=== PATIENT | female | born 1995 | race Caucasian/White ===

== ENCOUNTER → 2016-07-20 11:19 | Emergency (ER) | payer SELFPAY ==
[~2016-07-20 11:19] MED LIST: PPD test dose* 5 TU/0.1 ML TEST (*USE PPD ORDER SET*) ONE
== END | disposition home or self-care (01) ==
LOC: OHCORT 11:19
DX: Z11.1 Encounter for screening for respiratory tuberculosis (principal)

== ENCOUNTER 2017-04-09 09:02 | Emergency (ER) | payer BC ==
[2017-04-09 09:53] VITALS: BP 143/85
--- NOTE | 2017-04-09 10:34 | UC ---
UC General HPI - HPI Summary HPI Summary: 22 yo female c/o last couple days cough (minimally prod clear), no sob perse, no rash. No GI sx. + fever since last night. Hx childhood asthma, not recently. - History of Current Complaint Chief Complaint: UCRespiratory Stated Complaint: CONGESTION/FEVER Time Seen by Provider: 04/09/17 10:16 Hx Obtained From: Patient Hx Last Menstrual Period: 03/15/17 Pain Intensity: 0 - Allergy/Home Medications Allergies/Adverse Reactions: Allergies Allergy/AdvReac Type Severity Reaction Status Date / Time MS Metoclopramide Allergy Hives Verified 04/09/17 09:44 [From Reglan] seasonal Allergy Congestion Uncoded 04/09/17 09:44 Home Medications: Home Medications Acetaminophen TAB* [Tylenol TAB*] 650 mg PO ONCE PRN 04/09/17 [History Confirmed 04/09/17] PMH/Surg Hx/FS Hx/Imm Hx Previously Healthy: Yes - Surgical History Surgical History: None - Family History Known Family History: Positive: Hypertension - Social History Alcohol Use: Rare Substance Use Type: None Smoking Status (MU): Never Smoked Tobacco - Immunization History Most Recent Tetanus Shot: about 2007 Vaccination Up to Date: Yes Review of Systems Constitutional: Fever Skin: Negative Eyes: Negative ENT: Sore Throat, Nasal Discharge, Sinus Congestion Respiratory: Cough Cardiovascular: Negative Gastrointestinal: Negative Genitourinary: Negative Motor: Negative Neurovascular: Negative Musculoskeletal: Myalgia Neurological: Negative Psychological: Negative Is Patient Immunocompromised?: No All Other Systems Reviewed And Are Negative: Yes Physical Exam Triage Information Reviewed: Yes Appearance: Well-Nourished Vital Signs: Initial Vital Signs Temp 99.1 F 04/09/17 09:49 Pulse 105 04/09/17 09:49 Resp 20 04/09/17 09:49 BP 143/85 04/09/17 09:49 Pulse Ox 99 04/09/17 09:49 Vital Signs Reviewed: Yes Eye Exam: Normal ENT: Positive: Pharyngeal erythema - uvula midline, TM dull Neck exam: Normal Neck: Positive: Supple, Nontender Respiratory: Positive: Wheezing - mild exp wheeze bilat BS equal. No rtx. Cardiovascular Exam: Normal - HR 100's Cardiovascular: Positive: No Murmur, Pulses Normal, Brisk Capillary Refill, Tachycardia Abdominal Exam: Normal Abdomen Description: Positive: Nontender Musculoskeletal Exam: Normal - gait steady Neurological Exam: Normal - grossly nonfocal Psychological Exam: Normal - conversing easily and appropriately Skin Exam: Normal - nondiaphoretic Course/Dx - Course Course Of Treatment: Reviewed coa / tx plan. Questions answered to the best of my ability. Influenza a/b neg - Differential Dx - Multi-Symptom Provider Diagnoses: Bronchitis with wheezing Discharge - Discharge Plan Condition: Stable Disposition: HOME Prescriptions: Albuterol HFA INHALER* [Ventolin HFA Inhaler*] 1 - 2 puff INH Q6H PRN #1 mdi PRN Reason: Wheezing Patient Education Materials: Acute Bronchitis (ED), Bronchospasm (ED) Forms: *Work Release Referrals: [facility] – [place] [facility] [Outside] No Primary Care Phys,NOPCP [Primary Care Provider] - Additional Instructions: Seek medical attention for worse or new problems.
== END 2017-04-09 11:25 | disposition home or self-care (01) ==
LOC: UCCORT 09:02
DX: J40 Bronchitis, not specified as acute or chronic (principal); R06.2 Wheezing
CPT/HCPCS: 87502; 99212; G0463

== ENCOUNTER 2017-08-04 20:09 | Emergency (ER) | payer BC ==
[2017-08-04 20:33] VITALS: BP 149/108
--- NOTE | 2017-08-04 21:06 | UC ---
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 in btw 4th and 5th MCP her little finger is what hurts the most/especially with movement Td up to date was breaking up a dog fight both dogs are hers and vaccinated - History of Current Complaint Chief Complaint: UCLaceration Stated Complaint: LAC RIGHT HAND/DOG BITE Time Seen by Provider: 08/04/17 20:47 Hx Obtained From: Patient Hx Last Menstrual Period: 07/31/17 ?: Yes Severity Currently: Moderate Severity Initially: Moderate Pain Intensity: 5 Pain Scale Used: 0-10 Numeric Onset/Duration: Sudden Onset Type of Bite: Animal Has Animal Been Immunized?: Yes Character: Abrasion/Laceration Aggravating Factor(s): Nothing Alleviating Factor(s): Nothing Animal Available for Observation: Yes - Allergies/Home Medications Allergies/Adverse Reactions: Allergies Allergy/AdvReac Type Severity Reaction Status Date / Time metoclopramide Allergy Hives Verified 08/04/17 20:31 seasonal Allergy Congestion Uncoded 08/04/17 20:31 PMH/Surg Hx/FS Hx/Imm Hx Previously Healthy: Yes - Surgical History Surgical History: None - Family History Known Family History: Positive: Hypertension, Diabetes - Social History Alcohol Use: Rare Substance Use Type: None Smoking Status (MU): Never Smoked Tobacco - Immunization History Most Recent Tetanus Shot: 2015 Vaccination Up to Date: Yes Review of Systems Constitutional: Negative Skin: Other - lac Eyes: Negative ENT: Negative Respiratory: Negative Cardiovascular: Negative Gastrointestinal: Negative Genitourinary: Negative Motor: Negative Neurovascular: Negative Musculoskeletal: Negative Neurological: Negative Psychological: Negative Is Patient Immunocompromised?: No All Other Systems Reviewed And Are Negative: Yes Physical Exam Triage Information Reviewed: Yes Appearance: Well-Appearing, No Pain Distress, Well-Nourished Vital Signs: Initial Vital Signs Temp 98.1 F 08/04/17 20:26 Pulse 95 08/04/17 20:26 Resp 17 08/04/17 20:26 BP 149/108 08/04/17 20:26 Pulse Ox 100 08/04/17 20:26 ENT: Positive: Hearing grossly normal. Negative: Nasal congestion, Nasal drainage, Trismus, Muffled voice, Hoarse voice Neck: Positive: Supple, Nontender, No Lymphadenopathy Respiratory: Positive: Lungs clear, Normal breath sounds, No respiratory distress, No accessory muscle use Cardiovascular: Positive: RRR, No Murmur Musculoskeletal Exam: Normal Neurological: Positive: Alert Psychological Exam: Normal Skin Exam: Other - see image Diagnostics - Radiology No standard instances Xray Interpretation: No Acute Changes Radiology Interpretation Completed By: ED Physician Bite Injury Course/Dx - Differential Dx/Diagnosis Provider Diagnoses: dog bite right hand. right hand laceration - not sutured Discharge - Sign-Out/Discharge Documenting (check all that apply): Discharge/Admit/Transfer - Discharge Plan Condition: Stable Disposition: HOME Prescriptions: Amoxicillin/Clavulanate TAB* [Augmentin TAB 875*] 875 mg PO BID #12 tab Patient Education Materials: Animal Bite (ED) Forms: *Work Release Referrals: Lourdes Paul PA [Primary Care Provider] - 2 Days Additional Instructions: elevate elevate elevate gently clean twice daily with soap and water air dry or dry gently with a clean towel apply thin film of antibiotic oint bandaid recheck for concerns of infection your BP was high here and should be rechecked in a few weeks Images Hands: 1 - lac- 1 cm long, 2-3 mm wide, 1-2 mm deep
[2017-08-04] MEDS ORDERED: Amoxicillin/Clavulanate TAB* 875 MG PO ONE ×2 (21:21)
--- NOTE | 2017-08-04 21:38 | RAD ---
Indication: Dog bite. 2 views of the right hand demonstrates no fracture. Joint spaces all well-preserved. IMPRESSION: No fracture of the right hand is noted.
== END 2017-08-04 21:36 | disposition home or self-care (01) ==
LOC: UCCORT 20:09
DX: S61.411A Laceration without foreign body of right hand, initial encounter (principal); W54.0XXA Bitten by dog, initial encounter; Y93.9 Activity, unspecified; Y92.9 Unspecified place or not applicable; Z88.8 Allergy status to other drugs, medicaments and biological substances
CPT/HCPCS: 99213; A9270-GY; G0463

== ENCOUNTER 2018-05-03 14:24 | Emergency (ER) | payer BC ==
[2018-05-03 15:16] VITALS: BP 142/74
--- NOTE | 2018-05-03 15:41 | UC ---
Respiratory Complaint HPI - HPI Summary HPI Summary: 23 yo female with <24 hour hx of f/c, runny nose, cough and myalgias hx of asthma no wheezing - History of Current Complaint Chief Complaint: UCGeneralIllness Stated Complaint: COUGH, CHILLS Time Seen by Provider: 05/03/18 15:28 Hx Obtained From: Patient Hx Last Menstrual Period: 04/28/18 Onset/Duration: Sudden Onset, Lasting Hours Timing: Constant Severity Initially: Mild Severity Currently: Moderate Pain Intensity: 0 Pain Scale Used: 0-10 Numeric Character: Cough: Nonproductive Aggravating Factors: Nothing Associated Signs And Symptoms: Positive: URI - Allergies/Home Medications Allergies/Adverse Reactions: Allergies Allergy/AdvReac Type Severity Reaction Status Date / Time metoclopramide Allergy Hives Verified 05/03/18 15:16 seasonal Allergy Congestion Uncoded 05/03/18 15:16 Home Medications: Home Medications Ibuprofen TAB* [Motrin TAB* 600 MG] 600 mg PO Q8H PRN 05/03/18 [History Confirmed 05/03/18] PMH/Surg Hx/FS Hx/Imm Hx Previously Healthy: Yes Respiratory History: Asthma - Surgical History Surgical History: None - Family History Known Family History: Positive: Hypertension, Diabetes - Social History Alcohol Use: Rare Substance Use Type: None Smoking Status (MU): Never Smoked Tobacco - Immunization History Most Recent Tetanus Shot: 2014 Vaccination Up to Date: Yes Review of Systems All Other Systems Reviewed And Are Negative: Yes Constitutional: Positive: Fever, Chills, Fatigue Skin: Positive: Negative Eyes: Positive: Negative ENT: Positive: Nasal Discharge, Sinus Congestion, Sinus Pain/Tenderness Respiratory: Positive: Cough Cardiovascular: Positive: Negative Gastrointestinal: Positive: Negative Genitourinary: Positive: Negative Motor: Positive: Negative Neurovascular: Positive: Negative Musculoskeletal: Positive: Negative, Myalgia Neurological: Positive: Negative Psychological: Positive: Negative Physical Exam Vital Signs: Initial Vital Signs Temp 98.2 F 05/03/18 15:11 Pulse 83 05/03/18 15:11 Resp 16 05/03/18 15:11 BP 142/74 05/03/18 15:11 Pulse Ox 99 05/03/18 15:11 Respiratory Course/Dx - Course Course Of Treatment: influenza (-) - Differential Dx/Diagnosis Provider Diagnosis: Viral URI with cough, Elevated BP without diagnosis of hypertension Discharge - Sign-Out/Discharge Documenting (check all that apply): Patient Departure All imaging exams completed and their final reports reviewed: No Studies - Discharge Plan Condition: Stable Disposition: HOME Prescriptions: Albuterol HFA INHALER* [Ventolin HFA Inhaler*] 2 puff INH QID PRN #1 mdi PRN Reason: Wheezing Benzonatate CAP* [Tessalon CAP*] 100 - 200 mg PO TID PRN #28 cap PRN Reason: Cough Patient Education Materials: Upper Respiratory Infection (ED) Forms: *Work Release Referrals: Lourdes Paul PA [Primary Care Provider] - 6 Days (if not better) - Billing Disposition and Condition Condition: STABLE Disposition: Home
[2018-05-03 15:56] LABS: Influenza A Molecular NEGATIVE (Negative); Influenza B Molecular NEGATIVE (Negative)
== END 2018-05-03 16:05 | disposition home or self-care (01) ==
LOC: UCCORT 14:24
DX: J06.9 Acute upper respiratory infection, unspecified (principal); R05 Cough; R03.0 Elevated blood-pressure reading, without diagnosis of hypertension; J45.909 Unspecified asthma, uncomplicated; Z91.09 Other allergy status, other than to drugs and biological substances; Z88.8 Allergy status to other drugs, medicaments and biological substances
CPT/HCPCS: 99212; G0463

== ENCOUNTER 2019-04-21 18:00 | Inpatient (IN) | payer BC ==
[2019-04-21] MEDS ORDERED: Dinoprostone* 10 MG VAG.SUPP VAGINAL ONE (18:17)
[2019-04-21] MEDS ORDERED: Buffered Lidocaine 1% SYRIN* 1 ML/SYRINGE INTRADERM ONE (18:17)
[2019-04-21] MEDS ORDERED: Lactated Ringers 1000 ML Bag* 1,000 ML IV ONE (18:17)
[2019-04-21] MEDS ORDERED: Zolpidem TAB* 10 MG PO PRN (18:21)
--- NOTE | 2019-04-21 22:00 | HP ---
General Information - Reason for Visit Induction @39wks for A2GDM - General Information Maternal Age: 24 Grav: 1 Para: 0 SAB: 0 IEA: 0 Estimated Due Date: 04/28/19 Determined By: LMP Maternal Blood Type and Rh: O Positive - Results this Serology/RPR Result: Non-Reactive Rubella Result: Immune HBsAg Result: Negative HIV Result: Negative GBS Culture Result: Negative Past Medical History Pertinent Past Medical History: See Records Pertinent Past Surgical History: See Records Pertinent Family History: Non-Contributory - Antepartal Records Antepartal Records: Reviewed, Complicated by: - A2GDM, morbid obesity Review of Systems Constitutional: Comfortable CV Complaint: No Respiratory: Shortness of Breath: No Gastrointestinal: No Nausea/Vomiting, Normal Bowel Movement Genitourinary: No Dysuria, No Bleeding, No Leaking Fluid Musculoskeletal: No Complaint Neurological: No Headache, No Visual Changes Movement: Normal Exam Allergies/Adverse Reactions: Allergies metoclopramide Allergy (Verified 05/03/18 15:16) Hives seasonal Allergy (Uncoded 05/03/18 15:16) Congestion - Measurements Height: 5 ft 8 in Weight: 329 lb Weight in lbs: 329.427019 Body Mass Index (BMI): 50.0 Pre- Weight: 305 lb Weight Gained This : 24 lbs and 0 ozs - Exam Breast: Breast Exam Deferred CVA: No CVA Tenderness Extremities: No Edema Heart: Normal Rhythm/Heart Sounds HEENT: No Significant Findings - Abdominal Exam Abdomen Exam: Non-Tender - Ultrasound/Biophysical Profile Ultrasound Status: Not Done Targeted Exam Findings Cervical Exam: Closed Presenting Part: Vertex Membrane Status: Intact EFM Findings - External Monitor Findings Baseline Heart Rate: 135 External Monitor Findings: Accelerations Present, No Pattern of Variable or Late Decelerations, Variability Moderate, Baseline Stable Contractions: None Assessment/Plan - Assessment @39wks with A2GDM here for IOL. FS well controlled on 12U NPH QHS - Obstetrical Risk Factors Obstetrical Risk Factors: Gestational Diabetes - Plan Plan: Induction, Cervical Ripening
[2019-04-21] MEDS: Insulin NPH(*) 1 UNITS UNIT SUBCUT SCH (22:31)
[2019-04-22 07:55] LABS: Urine Benzodiazepine Screen None Detected (None Detect); Urine Opiates Screen None Detected (None Detect)
[2019-04-22] MEDS ORDERED: Dinoprostone* 10 MG VAG.SUPP VAGINAL ONE (08:44)
--- NOTE | 2019-04-22 11:31 | PN ---
Progress Note - Progress Note Date of Service: 04/22/19 Note: Sign out received from prior Call physician. Pt is G1 here for IOL in 39th week 2/2 GDMA2. Received cervidil last night, re-examined this AM with no cervical change. Cervix closed/thick/high, cervidil repeated this AM, if no or limited success with cervidil, will attempt transcervical balloon. FHT is reactive and reassuring with a baseline of 140bpm. Continue IOL Chan Cook, OBVENUN
[2019-04-22 15:25] LABS: ABS Lymphocytes 1.5 10^3/ul (1.0-4.8); ABS Monocytes 0.9 10^3/ul (0-0.8); ABS Neutrophils 13.5 10^3/ul (1.5-7.7); Eosinophil % 0.2 %; Hematocrit 34 % (35-47); Hemoglobin 11.1 g/dL (12.0-16.0); Lymphocyte % 9.5 %; Mean Corpuscular HGB Conc 32 g/dL (31-36); Mean Corpuscular Hemoglobin 21 pg (27-31); Mean Corpuscular Volume 65 fL (80-97); Mean Platelet Volume 8.4 fL (7.4-10.4); Nucleated Red Blood Cells % 0.1; Platelet Count 287 10^3/uL (150-450); Red Blood Count 5.29 10^6 /uL (3.70-4.87); Red Cell Distribution Width 16 % (10-15)
[2019-04-22] MEDS ORDERED: Morphine 10 MG/ML VIAL (1 ml) IV ONE (17:42)
--- NOTE | 2019-04-22 17:46 | PN ---
Progress Note - Progress Note Date of Service: 04/22/19 Note: Patient on hour 8 of Cervidil. Reports ongoing cramping and mild back pain. Requests pain relief, but not ready for epidural. Will give Morphine 5mg IV. FHT is baseline 145bpm, moderate, + accels, no decels [place] with ctxn's q 1-3 minutes. BP's normotensive. FSBG values appropriate. Re-examine in ~ 4 hours at 12 hour afshin of cervidil and remove cervidil at that time. Chan Cook, DO MACIAS
--- NOTE | 2019-04-22 22:23 | PN ---
Progress Note - Progress Note Date of Service: 04/22/19 Note: 24 y/o G1 at 39w1d here for IOL 2/2 GDMA2. Has received cervidil x 2, cervidil # 2 just removed; still not in active labor, but has been galina irregularly , spaced out after administration of Morphine 5mg x 1. Cervix was closed at beginning of IOL, now 1cm/thick/-3, soft, mid position. Discussed options for proceeding forward, pt would like to proceed with Cooks transcervical balloon. Exam is appropriate for Cooks. FHT is 140/moderate/+accels/no decels [place]: irregular contractions Will place Cooks balloon. RH+/Rubella Immune GBS negative Will continue with NPH Insulin as patient has been eating regular diet. In anticipation of labor will reduce dose this evening though. Continue to monitor FSBG values fasting and post prandial while eating a regular diet or until in active labor, then begin checking q 2 hours. Chan Cook, OBVENUN
--- NOTE | 2019-04-22 22:47 | PN ---
Progress Note - Progress Note Date of Service: 04/22/19 Note: Transcervical Cooks Balloon placed at ~ 1040pm. 75cc placed in the uterine balloon, 40cc placed in the vaginal balloon. Pt tolerated procedure well. Cervix swabbed with betadine prior to placement. Will give IV Morphine/Phenergan for pain relief/therapeutic rest. Will start low dose pitocin. FHT reactive and reassuring with baseline of 135bpm, no pattern of late or variable decels. Chan Cook, DO MACIAS
[2019-04-22] MEDS ORDERED: Morphine 10 MG/ML VIAL (1 ml) IV PRN (22:48)
[2019-04-22] MEDS ORDERED: Promethazine INJ(RESTRICTED)* 25 MG/ML 1 ML VIAL IV PRN (22:50)
[2019-04-22] MEDS ORDERED: Oxytocin in LR* 20 UNITS/1,000 ML BAG IVPB SCH (23:00)
[2019-04-22] MEDS: Insulin NPH(*) 1 UNITS UNIT SUBCUT SCH (23:12)
[2019-04-23] MEDS: Insulin NPH(*) 1 UNITS UNIT SUBCUT SCH (07:12)
--- NOTE | 2019-04-23 08:07 | PN ---
Progress Note - Progress Note Date of Service: 04/23/19 Note: Cooks balloon spontaneously expelled at 630am. Pt galina overnight, but spacing out. Fasting AM Glucose 89. FHT Reactive with baseline 145bpm, moderate variability, no decels. Pt would like to shower and eat prior to starting Pitocin. DO GILBERTO Dickerson
[2019-04-23] MEDS: Lactated Ringers 1000 ML Bag* 1,000 ML IV SCH ×2 (08:52→13:14)
--- NOTE | 2019-04-23 10:22 | PN ---
Progress Note - Progress Note Date of Service: 04/23/19 Note: Pt re-examined, cervix is now 5cm/60%/-2. Varun regularly on Pitocin at 6. AROM'd with clear fluid at 1015am. Head well applied. FHT is 150bpm/moderate variability/+accels/no decels Continue to titrate pitocin. Anticipate vaginal delivery. Will transition to q 2 hours FSBG values now, if elevated treat as indicated Chan Cook, DO MACIAS
[2019-04-23] MEDS ORDERED: OBEPIDURAL* 250 ML EPIDURAL ONE (11:17)
[2019-04-23] MEDS ORDERED: Sodium Citrate/Citric Acid* 15 ML UDC PO PRN (12:08)
[2019-04-23] MEDS ORDERED: Phenylephrine 40 MCG/ML SYRINGE IV PUSH PRN ×2 (12:08)
[2019-04-23] MEDS ORDERED: Lactated Ringers 1000 ML Bag* 1,000 ML IV ONE (12:08)
[2019-04-23] MEDS ORDERED: Lactated Ringers 1000 ML Bag* 1,000 ML IV SCH (13:00)
[2019-04-23] MEDS ORDERED: OBEPIDURAL* 250 ML EPIDURAL SCH (13:00)
--- NOTE | 2019-04-23 16:15 | PN ---
Progress Note - Progress Note Date of Service: 04/23/19 Note: Varun regularly. Cervix was re-examined by nursing and possibly thinner, but still 5cm. FHT is reactive with moderate variability, baseline 145bpm, occasional intermittent variables, no pattern of late or variable decels Pit is at 20, continue to max x 2 hours, then if no progress will turn off and allow Pitocin receptors to re-set, as long as tracing permits AVSS. FSBG values WNL. Chan Cook, DO MACIAS
--- NOTE | 2019-04-23 18:47 | PN ---
Progress Note - Progress Note Date of Service: 04/23/19 Note: Pt cervix re-examined at ~ 430pm. Cervix still 5cm, but significantly thinned out to 80% and head is better applied, but still at -2 station. On exam there was and additional large gush of fluid. Pitocin was stopped shortly after exam at ~1750pm to allow Pitocin receptors time to reset, as pt had been maxed out at 22. FHT remains re-assuring with moderate variability,+ accels, occasional variable decels, no continuous patterned late or variable decels. Will re-start Pitocin shortly and continue monitor. At this point pt has been ruptured x 8.5 hours and on Pitocin, but still in latent phase of labor and slow to enter into active phase. status remains reassuring and there is no indication for at this time. Pt wishes to proceed with IOL and attempt at vaginal delivery. She remains afebrile, and there are no s/sx of infection. DO GILBERTO Dickerson
--- NOTE | 2019-04-23 21:33 | PN ---
Progress Note - Progress Note Date of Service: 04/23/19 Note: FHT exhibits recurrent variable and occasional late decelerations with decreasing variability while being augmented with Pitocin. Pitocin had to be turned off secondary to the persistent category II tracing that was not responding to resucsitative measures. Cervix remains unchanged at 5cm and the head remains relatively high in the pelvis. There is small caput. Recommend that we proceed with delivery at this time secondary to persistent category II FHT remote from delivery, unable to further augment labor. Discussed the risks versus benefits of continuing to pursue a vaginal delivery versus proceeding with a cesaren section. Risks of were carefully reviewed with the patient and verbal and written consent were obtained. Anesthesia and Neonatology notified. FHT is stable at this time with Pitocin turned off. Will proceed to OR in a timely and safe fashion. DO GILBERTO Dickerson
[2019-04-23] MEDS ORDERED: ceFAZolin 1 GM ADVAN(*) 1 GM in NS 0.9% 50 ML* 50 ML IVPB ONE (21:54)
[2019-04-23] MEDS ORDERED: ceFAZolin VIAL(*) 2 GM in NS 0.9% 100 ML* 100 ML IVPB ONE (21:54)
[2019-04-23] MEDS ORDERED: OXYTOCIN* 10 UNITS/ML 1 ML VIAL ONE (22:13)
[2019-04-23] MEDS ORDERED: Morphine PF AMP (0.5MG/ML)* 5 MG/10 ML AMP ONE (22:13)
[2019-04-23] MEDS ORDERED: Phenylephrine 40 MCG/ML SYRINGE ONE (22:57)
[2019-04-23] MEDS ORDERED: Bupivacaine 0.5% SDV PF* 30ML VIAL ONE (22:57)
[2019-04-23] MEDS ORDERED: Ondansetron INJ* 2 MG/ML VIAL ONE (22:58)
[2019-04-23] MEDS ORDERED: Ketorolac INJ* 30 MG/ML 1 ML VIAL ONE (23:26)
[2019-04-24] MEDS ORDERED: Misoprostol TAB* 200 MCG ONE (00:45)
[2019-04-24] MEDS ORDERED: Glycerin ADULT SUPP PR PRN (00:47)
[2019-04-24] MEDS ORDERED: oxyCODONE TAB* 5 MG TAB PO PRN (00:47)
[2019-04-24] MEDS ORDERED: Dibucaine 1% 28.35 GM TUBE PR PRN (00:47)
[2019-04-24] MEDS ORDERED: Zolpidem TAB* 5 MG PO PRN (00:47)
[2019-04-24] MEDS ORDERED: Witch Hazel PAD* JAR TOPICAL PRN (00:47)
[2019-04-24] MEDS ORDERED: Misoprostol TAB* 200 MCG PR ONE (00:48)
[2019-04-24] MEDS ORDERED: Naloxone* 0.4 MG/ML 1 ML VIAL IV PRN ×2 (00:59→01:00)
[2019-04-24] MEDS ORDERED: fentaNYL* 50 MCG/ML 2 ML VIAL (100 MCG VIAL) IV PRN (00:59)
[2019-04-24] MEDS ORDERED: Ondansetron INJ* 2 MG/ML VIAL IV PRN (01:00)
[2019-04-24] MEDS ORDERED: HYDROcodone/ACETAMIN 5-325 MG* 1 TAB PO PRN (01:00)
[2019-04-24] MEDS ORDERED: Ketorolac INJ* 30 MG/ML 1 ML VIAL IV SCH (01:00)
[2019-04-24] MEDS ORDERED: DiMENhydriNATE IV* 50 MG/ML VIAL IV PUSH PRN (01:00)
[2019-04-24] MEDS ORDERED: diPHENhydraMINE IV* 50 MG/ML 1 ml VIAL (BENADRYL) IV PRN (01:00)
[2019-04-24] MEDS ORDERED: Lactated Ringers 1000 ML Bag* 1,000 ML IV SCH (01:00)
[2019-04-24] MEDS: Insulin NPH(*) 1 UNITS UNIT SUBCUT SCH (01:08)
[2019-04-24] MEDS: Ketorolac INJ* 30 MG/ML 1 ML VIAL IV SCH ×3 (06:06→18:05)
--- NOTE | 2019-04-24 06:21 | OP ---
DATE OF OPERATION: 04/23/19 - ROOM #101 DATE OF : 89 SURGEON: Corbin Cook, LENS CLEANER: Hanna Mirza MD ANESTHESIA: Spinal. PRE-OP DIAGNOSIS: SIUP at term, GDMA2, Persistent category II heart tracing, remote from delivery, unable to augment further. POST-OP DIAGNOSIS: same, delivered. OPERATIVE PROCEDURE: Primary low transverse section via Pfannenstiel incision. ESTIMATED BLOOD LOSS: 800 mL. IV FLUIDS: 2 L. URINE OUTPUT: 200 mL. SPECIMENS: Placenta to Pathology and mole excised from center lower abdomen. COMPLICATIONS: None. INDICATIONS: Pt initially presented for induction of labor at 39 weeks secondary to GDMA2. Received Cervidil x 2, followed by transcervical Cooks balloon, followed by Pitocin and AROM. Pt's cervix remained unchanged at 5cm x 12 hours after rupture and Pitocin. Towards the end of this period of time the heart tracing exhibited recurrent variable and late decelerations. Conservative measures of oxygen supplementation and position changes did not relieve these findings. The Pitocin was discontinued and uterine rest was permitted. We were unable to further augment the patient and she remained remote from delivery. section was recommended to the patient for the well being. The patient understood that the risks of section include, but are not limited to visceral or vascular injury, infection, blood loss, and need for transfusion, prolonged hospitalization, and reoperation. The patient stated understanding and desired to proceed. All questions were answered. FINDINGS: Male in vertex position. Apgars 9 and 9. Weight 3470 g or 7 pounds 10 ounces. Normal uterus, fallopian tubes, and ovaries bilaterally. DESCRIPTION OF PROCEDURE: The patient was taken to the operating room where spinal anesthesia was administered and found to be adequate. 3 g of Ancef were given for infection prophylaxis. She was prepared and draped in the dorsal supine fashion with a leftward tilt. The traxi pannus retention system was used. A Pfannenstiel skin incision was made with the scalpel and carried down all they way to the fascia sharply. The fascia was incised and extended laterally. The inferior aspect of the fascia was grasped with the Marielle clamps. The underlying rectus muscle and pyramidalis was dissected off sharply with Costa scissors. In a similar fashion, superior aspect of the fascia was elevated with the Marielle and the rectus muscle dissected off. Hemostasis was achieved with the Bovie. The rectus muscle was in the midline down to the level of the pubic symphysis. Preperitoneal fatty tissue was bluntly dissected to expose the peritoneum. The peritoneum was found to be free of adherent bowel and entered bluntly. The peritoneal incision was extended superiorly and inferiorly to the bladder reflection with good visualization of the bladder. The bladder blade was inserted and vesicouterine peritoneum identified. Intraabdominal survey revealed scant clear peritoneal fluid and a thinned out lower uterine segment. The vesicouterine peritoneum was opened with scissors and a bladder flap was developed. The bladder blade was removed and the James retractor was placed in order to aid with visualization and keep the bladder and omentum out of the operative field. The lower uterine segment was incised with a scalpel. The amniotic sac was ruptured and clear fluid noted. Uterine incision was extended bluntly with a cephalocaudad motion. The fetus was in cephalic presentation. The head was elevated out of the pelvis with special attention paid to avoid using the uterine incision as fulcrum. Gentle fundal pressure was applied once the head was brought into the incision. The was delivered with no difficulty. The mouth and nose were suctioned with a bulb. The cord was clamped and cut. The infant was handed off to table setter. IV Pitocin was initiated to facilitate uterine contractions. The placenta was delivered intact with manual massage of the uterine fundus. The uterus was then exteriorized. The inside of the uterus was gently wiped with a lap sponge to assure complete removal of the placental membranes. The uterine incision was closed with 0 Vicryl suture in a running locked fashion. An imbricating suture was also performed with 0 Vicryl suture in a running fashion. The fallopian tubes and ovaries were found to be normal bilaterally. The uterus, tubes, and ovaries were then returned to the abdominal cavity. The blood clots and fluid were wiped out the abdomen and pelvis with moist laparotomy sponges. The uterine incision was reinspected and good hemostasis was noted. The peritoneum was closed with 3-0 Vicryl suture in a continuous running fashion. The fascial layer was closed with 0-Vicryl suture. The incision was irrigated. The subcutaneous fat was closed with 3-0 Vicryl interrupted sutures. The skin was closed with 4-0 Monocryl in a subcuticular fashion. The patient tolerated the procedure well. All the counts were correct x2. The patient was taken to the recovery room in stable condition. I was present for the entire procedure. DO JUAN F DickersonN [id number]/[facility] #: [id number] MTDD
[2019-04-24] MEDS: Simethicone TAB* 80 MG TAB.CHEW PO SCH ×4 (09:31→21:38)
[2019-04-24] MEDS: Docusate CAP* 100 MG PO SCH ×3 (09:33→21:38)
[2019-04-24] MEDS: Enoxaparin(*) 40 MG/0.4 ML SYR SUBCUT SCH (11:05)
[2019-04-25] MEDS: Ibuprofen TAB* 600 MG PO PRN ×4 (00:56→20:42)
[2019-04-25] MEDS: Acetaminophen TAB* 325 MG PO PRN ×4 (00:56→15:54)
[2019-04-25 06:55] LABS: ABS Basophils 0.1 10^3/ul (0-0.2); ABS Eosinophils 0.2 10^3/ul (0-0.6); ABS Lymphocytes 1.8 10^3/ul (1.0-4.8); ABS Monocytes 0.9 10^3/ul (0-0.8); ABS Neutrophils 9.9 10^3/ul (1.5-7.7); Eosinophil % 1.8 %; Hematocrit 27 % (35-47); Hemoglobin 8.6 g/dL (12.0-16.0); Lymphocyte % 13.7 %; Mean Corpuscular HGB Conc 32 g/dL (31-36); Mean Corpuscular Hemoglobin 21 pg (27-31); Mean Corpuscular Volume 65 fL (80-97); Mean Platelet Volume 8.1 fL (7.4-10.4); Nucleated Red Blood Cells % 0.1; Platelet Count 218 10^3/uL (150-450); Red Blood Count 4.15 10^6 /uL (3.70-4.87); Red Cell Distribution Width 16 % (10-15); White Blood Count 12.9 10^3/uL (3.5-10.8)
[2019-04-25] MEDS: Docusate CAP* 100 MG PO SCH ×3 (08:15→20:43)
[2019-04-25] MEDS: Ferrous Gluconate TAB* 324 MG TAB PO SCH ×2 (08:15→20:43)
[2019-04-25] MEDS: Simethicone TAB* 80 MG TAB.CHEW PO SCH ×4 (08:15→20:43)
[2019-04-25] MEDS: Enoxaparin(*) 40 MG/0.4 ML SYR SUBCUT SCH (11:31)
[2019-04-25] MEDS: oxyCODONE TAB* 5 MG TAB PO PRN ×2 (15:53→22:36)
[2019-04-26] MEDS: oxyCODONE TAB* 5 MG TAB PO PRN ×2 (06:12→10:47)
[2019-04-26] MEDS: Acetaminophen TAB* 325 MG PO PRN ×2 (06:12→10:46)
[2019-04-26] MEDS: Simethicone TAB* 80 MG TAB.CHEW PO SCH (07:40)
[2019-04-26] MEDS: Ferrous Gluconate TAB* 324 MG TAB PO SCH (07:41)
[2019-04-26] MEDS: Docusate CAP* 100 MG PO SCH (07:41)
[2019-04-26 07:56] VITALS: BP 134/68
== END 2019-04-26 12:06 | disposition home or self-care (01) | DRG 540 ==
LOC: MCHOBOUT 18:00 → MCHOB 21:41
PROVIDERS: ADMIT Obstetrics & Gynecology; ATTEND Obstetrics & Gynecology
PROC: 3E033VJ Introduction of Other Hormone into Peripheral Vein, Percutaneous Approach (ICD-10-PCS; 2019-04-23)
PROC: 3E0P7VZ Introduction of Hormone into Female Reproductive, Via Natural or Artificial Opening (ICD-10-PCS; 2019-04-23)
PROC: 10D00Z1 Extraction of Products of Conception, Low, Open Approach (ICD-10-PCS; principal; 2019-04-23 22:17)
DX: O24.424 Gestational diabetes mellitus in childbirth, insulin controlled (principal); O99.214 Obesity complicating childbirth; E66.01 Morbid (severe) obesity due to excess calories; O62.0 Primary inadequate contractions; O32.4XX0 Maternal care for high head at term, not applicable or unspecified; O76 Abnormality in fetal heart rate and rhythm complicating labor and delivery; Z3A.39 39 weeks gestation of pregnancy; Z37.0 Single live birth
CPT/HCPCS: 36415; 59200; 80307; 85025; 86850; 86900; 86901; 88305; A9270-GY; G0480; J0690; J1650; J1885; J2270; J2405; J2550; J2590; J3490

== ENCOUNTER 2023-01-19 06:01 | Inpatient (IN) ==
[~2023-01-19 06:01] MED LIST changes: +Buffered Lidocaine 1% SYRIN 1 ml INTRADERM ONE; +HYDROcodone/ACETAMIN 5/325 mg TAB PO PRN; +Lactated Ringers 1000 ml BAG 1,000 ML IV SCH; +Metoclopramide 5 MG/ML VIAL (10 mg) IV PRN; +Naloxone 0.4 mg VIAL 0.4 mg/ml 1 ml VIAL IV PRN; +Ondansetron 4 mg VIAL 2 MG/ML 2 ml VIAL IV PRN; -PPD test dose* 5 TU/0.1 ML TEST (*USE PPD ORDER SET*) ONE
[2023-01-19] MEDS ORDERED: Scopolamine 1 mg/72hr PATCH ONE (06:44)
[2023-01-19] MEDS ORDERED: ceFAZolin *3* GM in NS PREMIX 3 GM/100 ML BAG IV ONE (06:44)
[2023-01-19] MEDS ORDERED: Heparin 5000 UNITS/ML 1 mL VIAL ONE (06:44)
[2023-01-19] MEDS ORDERED: Ondansetron 4 mg VIAL 2 MG/ML 2 ml VIAL ONE (06:58)
[2023-01-19] MEDS ORDERED: Propofol 10 MG/ML 20 ML BTL ONE (06:58)
[2023-01-19] MEDS ORDERED: Rocuronium 50 mg VIAL 10 mg/ml 5 ml VIAL (50 mg) ONE (06:58)
[2023-01-19] MEDS ORDERED: Glycopyrrolate IV 0.2 MG/ML 1 ML VIAL ONE (06:58)
[2023-01-19] MEDS ORDERED: Dexamethasone IV 4 MG/ML VIAL 1 ml VIAL ONE ×2 (06:58→07:02)
[2023-01-19] MEDS ORDERED: Midazolam 2 mg/2 ml VIAL 1 mg/ml 2 ml VIAL (2 mg) ONE (07:01)
[2023-01-19] MEDS ORDERED: fentaNYL 250 mcg/5 ml 50 MCG/ML 5 ml VIAL (250 MCG) ONE (07:01)
[2023-01-19] MEDS ORDERED: Lidocaine 1% w EPI 1:200,000 SDV 30 ML VIAL ONE (07:06)
[2023-01-19] MEDS ORDERED: Bupivacaine 0.5% SDV PF 30ML VIAL ONE (07:06)
[2023-01-19] MEDS ORDERED: Methylene Blue 1% (ANTIDOTE) 10 MG/ML 1 ML SDV VIAL IVPB ONE ×2 (07:06→07:19)
[2023-01-19] MEDS ORDERED: HYDROmorphone 0.5 MG/0.5 ML SYRINGE ONE (08:17)
[2023-01-19] MEDS ORDERED: Labetalol IV 5 MG/ML 20 ml VIAL ONE (08:21)
[2023-01-19] MEDS ORDERED: Ondansetron 4 mg VIAL 2 MG/ML 2 ml VIAL IV PRN (09:41)
[2023-01-19] MEDS ORDERED: HYDROcodone/ACET. 7.5/325 LIQ 15 ML UDC PO PRN (09:41)
[2023-01-19] MEDS ORDERED: Famotidine IV 10 MG/ML 2 ml VIAL (20 mg) IV SLOW PU PRN (09:41)
[2023-01-19] MEDS ORDERED: HYDROmorphone 0.5 MG/0.5 ML SYRINGE IV SLOW PU PRN (09:41)
[2023-01-19] MEDS ORDERED: Dextrose 50% Syringe 50 ml 25 GM/50 ML SYRINGE IV PUSH PRN (09:46)
[2023-01-19 10:07] LABS: Rapid COVID-19 Molecular Undetected (Undetected)
[2023-01-19] MEDS ORDERED: fentaNYL 100 mcg/2 ml 50 MCG/ML VIAL ONE ×2 (10:16→10:24)
[2023-01-19] MEDS: fentaNYL 100 mcg/2 ml 50 MCG/ML VIAL IV PRN ×8 (10:18→11:34)
[2023-01-19] MEDS: Lactated Ringers 1000 ml BAG 1,000 ML IV SCH ×3 (13:06→19:41)
[2023-01-19] MEDS: Heparin 5000 UNITS/ML 1 mL VIAL SUBCUT SCH (21:43)
[2023-01-20] MEDS: Lactated Ringers 1000 ml BAG 1,000 ML IV SCH (02:18)
[2023-01-20] MEDS: Heparin 5000 UNITS/ML 1 mL VIAL SUBCUT SCH (06:12)
[2023-01-20 10:20] VITALS: BP 97/60
[2023-01-20] MEDS ORDERED: D5W 1/2 NS KCl 20 meq 1000 ml 1,000 ML IV SCH (13:30)
== END 2023-01-20 13:00 | disposition home or self-care (01) | DRG 403 ==
LOC: AA 06:01 → SSU 09:41
PROVIDERS: ADMIT Surgery; ATTEND Surgery

== ENCOUNTER 2023-02-22 18:10 | Inpatient (IN) ==
[2023-02-22] MEDS ORDERED: Ondansetron 4 mg VIAL 2 MG/ML 2 ml VIAL IV ONE (18:28)
[2023-02-22] MEDS ORDERED: Lactated Ringers 1000 ml BAG 1,000 ML IV ONE (18:44)
[2023-02-22 19:03] LABS: ABS Eosinophils 0.1 10^3/uL (0.0-0.5); ABS Lymphocytes 1.4 10^3/uL (1.0-4.8); ABS Monocytes 0.4 10^3/uL (0.0-0.9); ABS Neutrophils 6.2 10^3/uL (1.5-7.6); ABS Nucleated RBC 0.01 10^3/ul; Eosinophil % 0.8 %; Hematocrit 27.3 % (35-45); Hemoglobin 8.6 g/dL (11.5-14.3); Mean Corpuscular Hemoglobin 19.1 pg (27-33); Mean Corpuscular Hgb Conc 31.4 g/dL (31-36); Mean Corpuscular Volume 60.7 fL (80-97); Mean Platelet Volume 9.2 fL (7.5-11.2); Nucleated Red Blood Cells % 0.1 %/100WBC (0.0-0.8); Platelet Count 255 10^3/uL (150-450); Red Cell Distribution Width 16.8 % (12-17); White Blood Count 8.2 10^3/uL (3.8-11.8)
[2023-02-22 19:11] LABS: ALT 24 U/L (7-52); AST 15 U/L (13-39); Albumin 3.5 g/dL (3.2-5.2); Albumin/Globulin Ratio 1.9 (1-3); Alkaline Phosphatase 34 U/L (35-149); Anion Gap 5 mmol/L (2-16); Blood Urea Nitrogen 23 mg/dL (6-24); C Reactive Protein 1.52 mg/L (<8.01); CO2 Carbon Dioxide 24 mmol/L (22-32); Calcium 7.8 mg/dL (8.6-10.3); Chloride 111 mmol/L (101-111); Creatinine, Serum 0.62 mg/dL (0.51-0.95); Globulin 1.8 g/dL (2-4); Glucose 127 mg/dL (70-100); Potassium 3.7 mmol/L (3.5-5.0); Sodium 140 mmol/L (135-145); Total Bilirubin 0.6 mg/dL (0.2-1.0); Total Protein 5.3 g/dL (6.4-8.9); eGFR CKD-EPI 125.1 (>60)
[2023-02-22 19:17] LABS: HCG Pregnancy < 0.60 mIU/mL
[2023-02-22 19:52] LABS: ABS Basophils 0.1 10^3/uL (0.0-0.1); ABS Eosinophils 0.1 10^3/uL (0.0-0.5); ABS Lymphocytes 1.3 10^3/uL (1.0-4.8); ABS Monocytes 0.4 10^3/uL (0.0-0.9); ABS Neutrophils 7.8 10^3/uL (1.5-7.6); Eosinophil % 0.6 %; Hematocrit 26.1 % (35-45); Hemoglobin 8.3 g/dL (11.5-14.3); Lymphocyte % 13.2 %; Mean Corpuscular Hemoglobin 19.2 pg (27-33); Mean Corpuscular Hgb Conc 31.8 g/dL (31-36); Mean Corpuscular Volume 60.2 fL (80-97); Mean Platelet Volume 9.2 fL (7.5-11.2); Platelet Count 256 10^3/uL (150-450); Red Blood Count 4.33 10^6/uL (3.63-4.92); Red Cell Distribution Width 17.2 % (12-17); White Blood Count 9.7 10^3/uL (3.8-11.8)
[2023-02-22 19:57] LABS: Urine Appearance Clear; Urine Bilirubin Negative (Negative); Urine Blood 2+ (Negative); Urine Color Yellow; Urine Glucose Negative (Negative); Urine Ketones Negative (Negative); Urine Nitrite Negative (Negative); Urine Protein Negative (Negative); Urine Specific Gravity 1.017 (1.002-1.030); Urine Urobilinogen Negative (Negative)
[2023-02-22 20:07] LABS: % Iron Saturation 9 % (15-55); .Transferrin 160 mg/dL (203-362); Iron 21 ug/dL (50-212); Total Iron Binding Capacity 224 mcg/dL (250-450); Unsaturated Iron Binding 203 ug/dL
[2023-02-22 20:22] LABS: TSH Ultra Thyroid Stim Horm 1.04 mcIU/mL (0.34-5.60)
[2023-02-22 20:28] LABS: Ferritin 80.4 ng/mL (11-307)
[2023-02-22 20:51] LABS: Urine Bacteria Absent (Absent); Urine Red Blood Cell 3+(>10/hpf) (Absent); Urine Squamous Epithelial Cell Present (Absent); Urine White Blood Cell Trace(0-5/hpf) (Absent)
[2023-02-22 22:18] LABS: ABS Basophils 0.1 10^3/uL (0.0-0.1); ABS Monocytes 0.4 10^3/uL (0.0-0.9); ABS Neutrophils 6.2 10^3/uL (1.5-7.6); ABS Nucleated RBC 0.02 10^3/ul; Eosinophil % 0.3 %; Hematocrit 25.4 % (35-45); Lymphocyte % 22.7 %; Mean Corpuscular Hgb Conc 31.4 g/dL (31-36); Mean Corpuscular Volume 60.6 fL (80-97); Mean Platelet Volume 8.9 fL (7.5-11.2); Nucleated Red Blood Cells % 0.2 %/100WBC (0.0-0.8); Platelet Count 243 10^3/uL (150-450); Red Blood Count 4.19 10^6/uL (3.63-4.92); Red Cell Distribution Width 17.3 % (12-17); White Blood Count 8.7 10^3/uL (3.8-11.8)
[2023-02-22] MEDS ORDERED: Pantoprazole 80 mg in NS BAG 80 MG/250 ML BAG IV ONE (23:34)
[2023-02-22] MEDS ORDERED: Pantoprazole VIAL 40 MG VIAL IV ONE ×2 (23:34→23:50)
[2023-02-23] MEDS ORDERED: Lactated Ringers 1000 ml BAG 1,000 ML IV SCH (02:30)
[2023-02-23] MEDS ORDERED: Ondansetron 4 mg VIAL 2 MG/ML 2 ml VIAL IV PRN (03:43)
[2023-02-23 06:45] LABS: Albumin 3.4 g/dL (3.2-5.2); Albumin/Globulin Ratio 2.1 (1-3); Calcium 8.1 mg/dL (8.6-10.3); Creatinine, Serum 0.6 mg/dL (0.51-0.95); Globulin 1.6 g/dL (2-4); Magnesium 1.9 mg/dL (1.9-2.7); Potassium 3.7 mmol/L (3.5-5.0); Total Bilirubin 0.7 mg/dL (0.2-1.0); eGFR CKD-EPI 126.1 (>60)
[2023-02-23 07:16] LABS: ABS Basophils 0.1 10^3/uL (0.0-0.1); ABS Eosinophils 0.1 10^3/uL (0.0-0.5); ABS Lymphocytes 2.5 10^3/uL (1.0-4.8); ABS Monocytes 0.5 10^3/uL (0.0-0.9); Eosinophil % 1.5 %; Hemoglobin 7.7 g/dL (11.5-14.3); Lymphocyte % 35.2 %; Mean Corpuscular Hemoglobin 18.8 pg (27-33); Mean Corpuscular Hgb Conc 30.7 g/dL (31-36); Mean Corpuscular Volume 61.1 fL (80-97); Mean Platelet Volume 9.3 fL (7.5-11.2); Platelet Count 243 10^3/uL (150-450); Red Blood Count 4.09 10^6/uL (3.63-4.92); Red Cell Distribution Width 17.1 % (12-17); White Blood Count 7.1 10^3/uL (3.8-11.8)
[2023-02-23] MEDS ORDERED: Pantoprazole VIAL 40 MG VIAL IV SCH ×2 (10:00→12:00)
[2023-02-23] MEDS: Pantoprazole VIAL 40 MG VIAL IV SCH ×2 (11:16→23:08)
[2023-02-23] MEDS ORDERED: Iron Sucrose 200 MG in NS 0.9% 100 ml BAG 100 ML IVPB ONE (13:00)
[2023-02-23 13:37] LABS: Hematocrit 25.2 % (35-45)
[2023-02-24 00:28] LABS: Hematocrit 22.9 % (35-45); Hemoglobin 7.3 g/dL (11.5-14.3)
[2023-02-24 06:30] LABS: Calcium 8.2 mg/dL (8.6-10.3); Creatinine, Serum 0.64 mg/dL (0.51-0.95); Potassium 3.8 mmol/L (3.5-5.0); eGFR CKD-EPI 124.1 (>60)
[2023-02-24 09:50] LABS: Hematocrit 24.1 % (35-45); Hemoglobin 7.5 g/dL (11.5-14.3); Mean Corpuscular Hemoglobin 19.1 pg (27-33); Mean Corpuscular Hgb Conc 31.3 g/dL (31-36); Mean Corpuscular Volume 61.1 fL (80-97); Mean Platelet Volume 10.3 fL (7.5-11.2); Platelet Count 191 10^3/uL (150-450); Red Blood Count 3.95 10^6/uL (3.63-4.92); Red Cell Distribution Width 17.3 % (12-17); White Blood Count 6.1 10^3/uL (3.8-11.8)
[2023-02-24] MEDS ORDERED: fentaNYL 100 mcg/2 ml 50 MCG/ML VIAL ONE (11:51)
[2023-02-24] MEDS ORDERED: Midazolam 2 mg/2 ml VIAL 1 mg/ml 2 ml VIAL (2 mg) ONE (11:51)
[2023-02-24] MEDS: Pantoprazole VIAL 40 MG VIAL IV SCH ×2 (13:03→23:47)
[2023-02-24] MEDS ORDERED: Ondansetron 4 mg VIAL 2 MG/ML 2 ml VIAL IV PRN (13:56)
[2023-02-24] MEDS ORDERED: Acetaminophen IV 1 GM/100ML 1,000 MG/100 ML BAG IV PRN (13:56)
[2023-02-24] MEDS ORDERED: fentaNYL 100 mcg/2 ml 50 MCG/ML VIAL IV PRN (13:56)
[2023-02-24] MEDS ORDERED: HYDROmorphone 1 MG/1 ML SYRINGE IV PRN (13:56)
[2023-02-24] MEDS ORDERED: Naloxone 0.4 mg VIAL 0.4 mg/ml 1 ml VIAL IV PRN (13:56)
[2023-02-25 06:25] LABS: ABS Basophils 0.1 10^3/uL (0.0-0.1); ABS Eosinophils 0.2 10^3/uL (0.0-0.5); ABS Lymphocytes 2.1 10^3/uL (1.0-4.8); ABS Monocytes 0.5 10^3/uL (0.0-0.9); ABS Neutrophils 4.2 10^3/uL (1.5-7.6); ABS Nucleated RBC 0.01 10^3/ul; Eosinophil % 2.7 %; Hematocrit 25.8 % (35-45); Hemoglobin 8.1 g/dL (11.5-14.3); Mean Corpuscular Hemoglobin 19.1 pg (27-33); Mean Corpuscular Hgb Conc 31.5 g/dL (31-36); Mean Corpuscular Volume 60.6 fL (80-97); Mean Platelet Volume 9.3 fL (7.5-11.2); Nucleated Red Blood Cells % 0.1 %/100WBC (0.0-0.8); Platelet Count 252 10^3/uL (150-450); Red Blood Count 4.26 10^6/uL (3.63-4.92); Red Cell Distribution Width 17.3 % (12-17)
[2023-02-25 06:37] LABS: Calcium 8.5 mg/dL (8.6-10.3); Creatinine, Serum 0.61 mg/dL (0.51-0.95); Potassium 3.5 mmol/L (3.5-5.0); eGFR CKD-EPI 125.6 (>60)
[2023-02-25] MEDS ORDERED: Ferric Gluconate IV 250 MG in NS 0.9% 250 ml 200 ML IVPB SCH (09:00)
[2023-02-25 11:11] VITALS: BP 124/62
[2023-02-25] MEDS: Pantoprazole VIAL 40 MG VIAL IV SCH (12:36)
== END 2023-02-25 15:10 | disposition home or self-care (01) | DRG 241 ==
LOC: ED 18:10 → EDHOLD 18:10 → SUATTDRO 23:47 → MEDTELE 23:47
PROVIDERS: ADMIT Internal Medicine; ATTEND Student in an Organized Health Care Education/Training Program
PROC: O.GIEGD (2023-02-24 14:05)